=== PATIENT | female | born 1985 | race African-American/Black ===

== ENCOUNTER 2017-03-28 13:59 | Emergency (ER) | payer MEDICAID ==
[~2017-03-28] VITALS: Ht 167.6 cm; Wt 132.0 kg
[2017-03-28 14:15] VITALS: BP 120/82
[2017-03-28] MEDS ORDERED: DIPH,PERTUSS(ACELL),TET VAC/PF 0.5 ML IM-VACC ONE ×2 (15:00)
[2017-03-28] MEDS ORDERED: BACITRACIN ZINC OINT 500U/GM, 0.9 GM ONE (15:09)
== END 2017-03-28 15:40 | disposition home or self-care (01) ==
LOC: ED 15:31
DX: S81.852A Open bite, left lower leg, initial encounter (principal); W54.0XXA Bitten by dog, initial encounter; Y93.89 Activity, other specified; Y92.89 Other specified places as the place of occurrence of the external cause; Y99.8 Other external cause status
CPT/HCPCS: 90471; 90715

== ENCOUNTER 2017-07-01 12:18 | Emergency (ER) | payer MEDICAID, OTHER ==
[~2017-07-01] VITALS: Ht 167.6 cm; Wt 100.0 kg
[2017-07-01 12:43] VITALS: BP 141/84
[2017-07-01] MEDS ORDERED: KETOROLAC 30 MG/1 ML ONE (14:21)
[2017-07-01] MEDS ORDERED: HYDROmorphone 2 MG/ML, 1ML ONE (14:22)
[2017-07-01] MEDS ORDERED: HYDROmorphone 1 MG/ML, 1ML IM ONE (14:30)
[2017-07-01] MEDS ORDERED: KETOROLAC 30 MG/1 ML IM ONE (14:30)
[2017-07-01 14:49] LABS: HCG UR SG 1.017 (1.003-1.030)
== END 2017-07-01 16:02 | disposition home or self-care (01) ==
LOC: ED 15:30
DX: M54.16 Radiculopathy, lumbar region (principal); M54.30 Sciatica, unspecified side; S39.82XA Other specified injuries of lower back, initial encounter; W01.0XXA Fall on same level from slipping, tripping and stumbling without subsequent striking against object, initial encounter; Y93.89 Activity, other specified; Y92.89 Other specified places as the place of occurrence of the external cause; Y99.8 Other external cause status
CPT/HCPCS: 72110; 81025; 96372; 99285; J1170; J1885

== ENCOUNTER 2017-07-19 09:12 | Emergency (ER) | payer MEDICAID ==
[~2017-07-19] VITALS: Ht 167.6 cm; Wt 139.3 kg
[2017-07-19 09:14] VITALS: BP 153/107
== END 2017-07-19 10:04 | disposition left against medical advice (07) ==
LOC: ED 09:54
DX: G89.29 Other chronic pain (principal); M25.552 Pain in left hip
CPT/HCPCS: 99281

== ENCOUNTER 2018-12-13 06:52 | Emergency (ER) | payer MEDICAID ==
[~2018-12-13] VITALS: Ht 167.6 cm; Wt 132.0 kg
[2018-12-13] MEDS ORDERED: SODIUM CHLORIDE FLUSH 10ML SYR IVF ONE (07:30)
[2018-12-13] MEDS ORDERED: SODIUM CHLORIDE 0.9% 1,000ML IVBOLUS ONE (07:30)
[2018-12-13] MEDS ORDERED: MORPHINE SULFATE 4 MG/ML, 1ML IVPush PRN (07:30)
[2018-12-13] MEDS ORDERED: ONDANSETRON 2MG/ML, 2ML IVPush ONE (07:30)
[2018-12-13] MEDS ORDERED: MORPHINE SULFATE 4 MG/ML, 1ML ONE (07:44)
[2018-12-13] MEDS ORDERED: ONDANSETRON 2MG/ML, 2ML ONE (07:44)
--- NOTE | 2018-12-13 07:51 | NUR ---
33 YR OLD FEMALE HERE WITH C/O "UPPER ABD PAIN" BEGAN LAST NIGHT. PT WITH NAUSEA, DENIES URINARY SYMPTOMS, HAS CONSTIPATION. PT WITH INCREASED RR, ENC RELAXATION BREATHING. IV STARTED, NS INFUSING ORDERED. PT MEDICATED FOR 10/10 PAIN ORDERED. PT UPDATED ON POC. NO NEEDS EXPRESSED AT THIS TIME. PT AWARE OF URINE SPECIMAN NEEDED.
[2018-12-13 07:54] LABS: BASOPHILS # (AUTO) 0.01 x10^3/uL (0-0.1); BASOPHILS % (AUTO) 0 % (0-1); EOSINOPHILS # (AUTO) 0.23 x10^3/uL (0-0.4); EOSINOPHILS % (AUTO) 3 % (1-7); LYMPHOCYTES # (AUTO) 1.87 x10^3/uL (1-3.4); LYMPHOCYTES % (AUTO) 27 % (22-44); MD NO; MEAN CORPUSCULAR HEMOGLOBIN 27.6 pg (27.0-34.8); MEAN CORPUSCULAR HGB CONC 32.4 g/dL (32.4-35.8); MEAN CORPUSCULAR VOLUME 85.1 fL (80-100); MEAN PLATELET VOLUME 8.3 fL (7.4-10.4); MONOCYTES # (AUTO) 0.19 x10^3/uL (0.2-0.8); MONOCYTES % (AUTO) 3 % (2-9); NEUTROPHILS # (AUTO) 4.51 x10^3/uL (1.8-6.8); NEUTROPHILS % (AUTO) 66 % (42-75); PLATELET COUNT 376 x10^3/uL (130-400); RED BLOOD COUNT 5.36 x10^6/uL (3.82-5.3); RED CELL DISTRIBUTION WIDTH 15.8 % (9.6-15.2)
[2018-12-13 08:03] LABS: ANION GAP 8 mmol/L (5-15); CALCIUM 8.8 mg/dL (8.5-10.1); CHLORIDE 108 mmol/L (98-107); CREATININE 0.96 mg/dL (0.55-1.02)
[2018-12-13 08:04] LABS: ALANINE AMINOTRANSFERASE 25 U/L (12-78); ALBUMIN 3.9 g/dL (3.4-5.0)
--- NOTE | 2018-12-13 08:05 | NUR ---
PT WITH DECREASED RR. PAIN DECREASED. PT S/O AT BEDSIDE. NO NEEDS EXPRESSED AT THIS TIME.
[2018-12-13 08:08] LABS: ALKALINE PHOSPHATASE 74 U/L (45-117); BILIRUBIN,TOTAL 0.4 mg/dL (0.2-1.0); TOTAL PROTEIN 7.9 g/dL (6.4-8.2)
--- NOTE | 2018-12-13 08:50 | NUR ---
REPORT FROM ELOISA LOPEZ. ASSUMED CARE OF PATIENT AT THIS TIME.
--- NOTE | 2018-12-13 08:52 | NUR ---
REPORT TO JOSE AMIN
[2018-12-13 08:55] LABS: MICROSCOPIC NOT IND
[2018-12-13 08:57] LABS: CULTURE INDICATED? NO
--- NOTE | 2018-12-13 08:57 | NUR ---
PATIENT BACK FROM XRAY, VS UPDATED IN CHART, PATIENT SITTING IN [facility] WATCHING TV, NADN. [phone]. AWAITING RESULTS. NO ADDITIONAL NEEDS AT THIS TIME.
--- NOTE | 2018-12-13 08:59 | NUR ---
PATIENT REPORTS PAIN MEDICATION HELPED.
--- NOTE | 2018-12-13 09:12 | NUR ---
RESULTS BACK, CHART UP FOR RECHECK.
[2018-12-13 10:09] VITALS: BP 163/91
--- NOTE | 2018-12-13 10:09 | NUR ---
Patient/Caregiver given discharge instructions and they have confirmed that they understand the instructions. Patient ambulatory with steady gait. Addendum: 12/13/18 at 1016 by CARLOS CORRECTION: PATIENT ASSISTED TO DC DESK VIA WHEELCHAIR BY NADN. ELSA
== END 2018-12-13 10:11 | disposition home or self-care (01) ==
LOC: ED 10:09
DX: R10.84 Generalized abdominal pain (principal); R11.2 Nausea with vomiting, unspecified; R10.11 Right upper quadrant pain; R10.12 Left upper quadrant pain
CPT/HCPCS: 36415; 74021; 76700; 80053; 81003; 83605; 83690; 84703; 85025; 96361; 96374; 96375; 99284; J2270; J2405; J7030